=== PATIENT | male | born 1960 | race Caucasian/White ===

== ENCOUNTER → 2016-12-28 | Outpatient (CLI) | payer BC ==
[~2016-12-28] MED LIST: ADVIL200 MG PO; ASPIRIN LO-DOSE81 MG PO; BRILINTA90 MG PO; BUPROPION HCL150 M1 PO; DELTASONE50 MG PO; DOXYCYCLINE HY100 MG PO; ISOSORBIDE MON120 MG PO; LEVAQUIN500 MG PO; LIPITOR40 MG PO; LOPRESSOR25 MG PO; NITROSTAT0.4 MG SL; PROAIR HFA8.5 GM INH; PROTONIX40 MG PO; RANEXA ER500 MG PO; TOPROL XL100 MG PO; TYLENOL EXTRA500 MG PO; VASOTEC5 MG PO
[2016-12-28 14:10] LABS: BASOPHIL % 0.3 %; HEMATOCRIT 42.3 % (37.0-53.0); HEMOGLOBIN 14.3 g/dL (12.0-17.0); IMMATURE GRANULOCYTE % 0.3 %; LYMPHOCYTE # 1.7 K/uL (0.8-4.0); LYMPHOCYTE % 24.3 %; MCH 30.5 pg (27.0-34.0); MCHC 33.8 gm/dL (32.0-36.5); MCV 90.2 fl (83.0-98.0); MONOCYTE # 0.4 K/uL (0.0-1.0); MONOCYTE % 6.4 %; NEUTROPHIL # (ANC) 4.7 K/uL (1.4-9.0); NEUTROPHIL % 68.7 %; NRBC % 0 /100WBC (0-0.00); PLATELET COUNT 227 K/uL (150-450); RBC 4.69 M/uL (4.00-6.00); RDW-CV 14.3 % (11.9-14.6); WBC 6.9 K/uL (4.0-11.0)
[2016-12-28 14:23] LABS: ANION GAP 13.2 (10.0-19.0); BLOOD UREA NITROGEN 20 mg/dL (6-24); CHLORIDE 105 mMol/L (96-110); CO2 25 mMol/L (22-32); CPK 92 IU/L (35-332); CREATININE 1.4 mg/dL (0.6-1.3); ESTIMATED GFR (MDRD EQUATION) 52; POTASSIUM 4.2 mMol/L (3.7-5.1); SODIUM 139 mMol/L (135-145)
== END | disposition disaster alternative care site (69) ==
LOC: LNHI 14:00
PROVIDERS: Internal Medicine Interventional Cardiology
DX: I25.119 Atherosclerotic heart disease of native coronary artery with unspecified angina pectoris (principal); I10 Essential (primary) hypertension; R07.9 Chest pain, unspecified

== ENCOUNTER → 2016-12-31 | Outpatient (CLI) | payer BC ==
--- NOTE | ~2016-12-31 | ESTC ---
Cardiac Perfusion Imaging Demographics Patient Name RAGHAV Ayers Gender Male Patient Number [id number] Race Visit Number [id number] [place] [id number] Room Number Accession Number [id number] Height Date of 1960 Weight Age 56 year(s) BSA Referring Physician Comfort Krueger Interpreting Comfort Date of study 12/31/2016 Physician Pati Supervising /MOISÉS CHUNG Technologist Pati Ordering Physician Comfort Krueger renal dialysis technician RD Stress ECG Reading Comfort Nurse Erika Ayers RN Physician Pati Procedure Procedure Type: Nuclear Stress Test:Cardiolite Stress Test Procedure Start time: 12/31/2016 08:18 Risk Factors The patient risk factors include:prior PCI on 11/15/2016;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 Conclusions Summary Perfusion Images: The overall quality of the study is fair. Left ventricular cavity size is normal on stress and rest images. There is no evidence of abnormal lung activity. The right ventricle is not visualized well and cannot be assessed. Stress imaging reveals medium sized area of severe decreased isotope uptake in the basal inferior wall and small size area of mild decreased isotope uptake in the distal anterior wall of the left ventricle. Rest imaging also reveals medium sized area of severe decreased isotope uptake in the basal inferior wall and small size area of mild decreased isotope uptake in the distal anterior wall. No significant reversibility was noted in these perfusion defects. Gated imaging reveals normal wall motion with calculated ejection fraction of 60%. Impression ECG portion of stress test is clinically nondiagnostic for ischemia by diagnostic criteria. The basal inferior wall and distal anterior wall matched defects with preserved wall motion is likely due to soft tissue attenuation. No significant reversibility was noted in the perfusion defects to suggest ischemia Overall left ventricular systolic function was normal without regional wall motion abnormalities. There are no previous studies for comparison . Stress Protocols Resting ECG Sinus Rhythm, old inferior MT, lateral ST depression with T wave inversion Pre-stress physical exam: Patient assessed by Dr Tripp prior to testing. Predicted HR: 164 bpm ECG Findings Indeterminate ECG due to baseline abnormalities. Arrhythmias No rhythm abnormality. Symptoms Dyspnea Stress Interpretation ECG portion of stress test is nondiagnostic for ischemia by diagnostic criteria. Nuclear images are pending. Imaging Results High risk findings Summed scores - Summed stress score: 3 - Summed rest score: 2 - Summed difference score: 1 Stress ejection Ejection fraction:60 % EDV :109 ml ESV :44 ml Stroke volume :65 ml LV mass :139 gr Imaging Protocols Rest Stress Isotope:Tc99m Sestamibi IV Isotope: Tc99m Sestamibi IV Isotope dose:14.4 mCi Isotope dose:45 mCi Date:12/31/2016 07:12 Date:12/31/2016 08:44 Technique: SPECT Technique: Gated Supine SPECT Supine Scan Time:45-60 minutes post Scan Time:45-60 minutes post injection injection Procedure Medications - Regadenoson (Lexiscan) 0.4 mg IV over 10-15 sec. I.V. . Medical History Admission Data Admission date: 12/31/2016 Admission Time: 07:09 Hospital Status: Outpatient. Signatures dtt: PATI TRIPP dtd: 12/31/16817 Physician Self Edit
== END | disposition disaster alternative care site (69) ==
LOC: GRAD 07:09
DX: R07.9 Chest pain, unspecified (principal); J44.9 Chronic obstructive pulmonary disease, unspecified; R94.39 Abnormal result of other cardiovascular function study; J98.4 Other disorders of lung; E78.5 Hyperlipidemia, unspecified; Z95.1 Presence of aortocoronary bypass graft; Z82.49 Family history of ischemic heart disease and other diseases of the circulatory system
CPT/HCPCS: A9500; J2785

== ENCOUNTER → 2017-02-08 | Outpatient (CLI) | payer BC | END | disposition disaster alternative care site (69) | LOC: GRAD 02-05 09:00 | DX: J98.4 Other disorders of lung (principal); Z98.890 Other specified postprocedural states; R91.8 Other nonspecific abnormal finding of lung field ==

== ENCOUNTER → 2017-03-03 | Outpatient (CLI) | payer BC ==
--- NOTE | ~2017-03-03 | PUL ---
PATIENT'S NAME: EDWINA AVILEZ [facility] AGE: 56 Y [address] ROOM: [place] [address] LOCATION: [facility] ADMIT DATE: 03/03/2017 Pulmonary DISCHARGE DATE: FAMILY PHYSICIAN: RACHID RODRIGUEZ MD ATTENDING PHYSICIAN: TERRI CACERES NAME OF PROCEDURE: Sleep Study PROCEDURE DATE: 03/03/17 TECH: PATRICK Alcantar TEST #: [facility] [place]# [id number] TECHNICAL PARAMETERS: The patient was studied using International 10/20 measuring system. While the patient was studied, there was continuous monitoring of EEG (8 leads), EOG (2 leads), EKG (3 leads), submental EMG (3 leads), tibial (4 leads), respiratory inductive plethysmography (RIP) for thoracic and abdominal effort, oral and nasal airflow with a thermocouple and pressure transducer, and oximetry. The marine electronics technician also performed visual and auditory observations noting things like body position, patient's status, breath sounds, artifact, snoring level and patient comments. Continuous sound was monitored using a 2-way speaker system and video monitoring was performed using an infrared camera. Review of the entire study was performed epoch by epoch utilizing a single epoch and multiple epoch capability sleep system. MEDICAL HISTORY: Patient is a 56-year-old male with daytime sleepiness and snoring. SLEEP STAGE SUMMARY: The patient was studied for 436 minutes of which he slept 287 minutes. He fell asleep in 19 minutes and slept for 66% of the night. Sleep architecture revealed a decline in slow wave sleep and a mild decline in REM sleep. RESPIRATORY SUMMARY: Oxygen saturations ranged from 81-94% and were below 88% for 31 minutes. There were no apneas and 124 hypopneas for an apnea/hypopnea index moderately elevated at 26 events per hour. Supine apnea/hypopnea index was 45 events per hour. Lateral was 14 events per hour. The majority of the events occurred too late in the study for initiation of CPAP. EKG SUMMARY: No significant dysrhythmias were noted. LIMB MOVEMENT SUMMARY: No clinically relevant periodic limb movements were noted. PATIENT'S NAME: EDWINA AVILEZ [facility] AGE: 56 Y [address] ROOM: [place] [address] LOCATION: [facility] ADMIT DATE: 03/03/2017 Pulmonary DISCHARGE DATE: FAMILY PHYSICIAN: RACHID RODRIGUEZ MD ATTENDING PHYSICIAN: TERRI CACERES SUMMARY: At least moderate obstructive sleep apnea, severe in the supine position. PLAN: Patient will receive results from the ordering provider. MD KATLIN OCONNOR/ /[id number] dtt: 03/15/17 0742 , Shawn Spence. dtd: 03/05/17 1309
== END | disposition disaster alternative care site (69) ==
LOC: GSLP 20:26
DX: G47.10 Hypersomnia, unspecified (principal); G47.33 Obstructive sleep apnea (adult) (pediatric); R06.83 Snoring

== ENCOUNTER → 2017-04-08 | Outpatient (CLI) | payer BC ==
--- NOTE | ~2017-04-08 | ENPV ---
Vascular Lower Arterial Plethysmography Procedure Demographics Patient Name EDWINA AVILEZ Date of Study 04/08/2017 Patient Number [id number] Gender Male Date of 1960 Age 56 Visit Number [id number] Height Accession Number [id number] Weight Room Number BSA BMI Referring Starr Frank MD Interpreting Dm Brasher MD Physician Alba Gómez MD Physician Physician Ordering Physician Starr Frank MD Higher Level Teaching Assistant Fire Protection Designer Ghassan Min T Conclusions Summary Ankle brachial index on the right is 1.07 no significant arterial disease at rest. Ankle brachial index on the left is .93 no significant arterial disease at rest. With exercise, the ankle brachial index did not drop more than 20% confirming the absence of significant peripheral arterial disease. Procedure Type of Study: Extremities Arteries:Lower Arterial Plethysmography, Segmental Pressure w/Excercies. Indications for Study:Claudication. Appropriate Use Criteria:9 Allergies - No known allergies. Patient Status:Routine. Study Location:Vascular Lab. Technical Quality:Adequate visualization. Velocities are measured in cm/s ; Diameters are measured in cm Pressures + +----+ +---------+--------+ + + ! ! !Right ! !Left ! ! ! + +----+ +---------+--------+ + + !Location ! !Pressure !Ratio ! !Pressure !Ratio ! + +----+ +---------+--------+ + + !Ankle PT ! !137 !1 ! !128 !0.93 ! + +----+ +---------+--------+ + + !DP ! !147 !1.07 ! !126 !0.92 ! + +----+ +---------+--------+ + + - Brachial Pressure:Right: 137.Left:127. - [place]:Right: 1.07.Left: 0.93. Post Exercise Exercise Time: 3 min. + +----+ +---------+--------+ + + ! ! !Right ! !Left ! ! ! + +----+ +---------+--------+ + + !Location ! !Pressure !Ratio ! !Pressure !Ratio ! + +----+ +---------+--------+ + + !STAPLE CUTTER ! ! ! ! !196 !1.35 ! + +----+ +---------+--------+ + + !DP ! !186 !1.28 ! ! ! ! + +----+ +---------+--------+ + + - Brachial Pressure:Right: 145. - [place]:Right: 1.28.Left: 1.35. Signature dtt: JUAN CAMARILLO: 04/08/17 1403 Physician Self Edit
== END | disposition disaster alternative care site (69) ==
LOC: GCAR 13:35
DX: M25.551 Pain in right hip (principal); I73.9 Peripheral vascular disease, unspecified

== ENCOUNTER → 2017-06-23 | Outpatient (CLI) | payer BC ==
[2017-06-23 17:04] LABS: ANION GAP 13.3 (10.0-19.0); CALCIUM 9.3 mg/dL (8.5-10.5); CREATININE 1.2 mg/dL (0.6-1.3); POTASSIUM 4.3 mMol/L (3.7-5.1); TOTAL BILIRUBIN 0.5 mg/dL (0.0-1.5)
== END ==
LOC: LNHI 16:32
PROVIDERS: Internal Medicine Interventional Cardiology
DX: E78.5 Hyperlipidemia, unspecified (principal); R06.00 Dyspnea, unspecified